=== PATIENT | male | born 2000 | race Two or more races ===

== ENCOUNTER 2022-09-01 15:57 | Emergency (ER) | payer MEDICAID ==
[~2022-09-01] VITALS: Ht 175.3 cm; Wt 78.0 kg
[2022-09-01] MEDS ORDERED: KETOROLAC TROMETH 30 MG/ML 1ML VIAL IV ONE (16:15)
[2022-09-01] MEDS ORDERED: ETOMIDATE (2MG/ML) 20ML VIAL IV ONE ×2 (16:45→18:00)
[2022-09-01 17:19] VITALS: BP 122/88
[2022-09-01] MEDS ORDERED: PROPOFOL 10 MG/ML 20 ML IV ONE ×5 (18:05→18:15)
[2022-09-01] MEDS ORDERED: IBUP800T26 PO (19:25)
== END 2022-09-01 19:55 | disposition home or self-care (01) ==
LOC: ER 15:57
DX: M24.412 Recurrent dislocation, left shoulder (principal)
CPT/HCPCS: 23650; 73020; 73030; 96374; 99152; 99285; J1885; J2704

== ENCOUNTER → 2024-02-20 | Outpatient (CLI) | payer OTHER ==
[~2024-02-20] MED LIST: GADOTERATE MEG 10 MMOL/20ml INJ (0.5MMOL/ml) IV ONE; GADOTERATE MEG 7.5 MMOL/15ml INJ (0.5MMOL/ml) IV ONE; IBUP-1455 PO; IOHEXOL 300 MG/ML 100ML BOTTLE IJ ONE; LIDOCAINE 2%HCL (LOCAL ANESTH.) INJ 10ml MDV ONE
== END | disposition home or self-care (01) ==
LOC: XYW 09:04
PROVIDERS: ATTEND Family Medicine
DX: S43.085A Other dislocation of left shoulder joint, initial encounter (principal); X58.XXXA Exposure to other specified factors, initial encounter; Y93.89 Activity, other specified; Y92.89 Other specified places as the place of occurrence of the external cause; Y99.8 Other external cause status
CPT/HCPCS: 73020; A9575; J2001; Q9967